=== PATIENT | male | born 1995 | race Two or more races ===

== ENCOUNTER 2018-09-20 12:09 | Emergency (ER) | payer OTHER ==
[~2018-09-20] VITALS: Ht 182.9 cm; Wt 90.7 kg
== END 2018-09-20 14:20 | disposition home or self-care (01) ==
LOC: ER 12:09
DX: R22.2 Localized swelling, mass and lump, trunk (principal)

== ENCOUNTER 2025-01-27 09:09 | Emergency (ER) | payer OTHER ==
[~2025-01-27] VITALS: Ht 180.3 cm; Wt 95.3 kg
== END 2025-01-27 10:19 | disposition home or self-care (01) ==
LOC: ER 09:14
DX: Z48.02 Encounter for removal of sutures (principal)